=== PATIENT | female | born 1990 | race Caucasian/White ===

== ENCOUNTER 2022-03-13 04:28 | Emergency (ER) | payer BC ==
[~2022-03-13] VITALS: Ht 172.7 cm; Wt 109.1 kg
[2022-03-13] MEDS ORDERED: ACETAMINOPHEN 500 MG TAB PO ONE (07:30)
[2022-03-13 09:13] VITALS: BP 118/64
== END 2022-03-13 09:14 | disposition home or self-care (01) ==
LOC: M ED 04:28
DX: M79.671 Pain in right foot (principal); E28.2 Polycystic ovarian syndrome; Z77.098 Contact with and (suspected) exposure to other hazardous, chiefly nonmedicinal, chemicals